=== PATIENT | female | born 1975 | race Two or more races ===

== ENCOUNTER 2025-11-25 09:24 | Outpatient (REF) | payer OTHER, SELFPAY ==
--- OUTSIDE RECORDS SUMMARY | 2025-11-25 09:56 | XMS_ITS | Clinical Summary ---
Author Organization [employer] Address [address] [facility] [address] [place] [address] Care Team Providers Care Heddler Name Role Phone Unavailable Primary Care Provider Unavailabl e Allergies No known active allergies Active Problems Problem Noted Date Diagnosed Date Post-menopausal 09/25/2025 Assessment & Plan (09/25/2025 4:40 PM EDT): Reports last period age 45. Experienced hot flashes for 1 yr before that, those have since resolved. Denies vaginal symptoms. Encounters Date Type Department Care Team Description 10/11/2025 Results Follow-Up [facility] [address] [place] [id number] Megan Ramires ANP Cologuard colon cancer screening 10/04/2025 Telephone [facility] [address] [place] [id number] Alyssia Khan NP Appointment Request 09/25/2025 2:45 PM EDT Office Visit [address] [address] Megan Ramires ANP Healthcare maintenance (Primary Dx); Screening for colon cancer; Routine screening for STI (sexually transmitted infection); Encounter for screening mammogram for malignant neoplasm of breast; Dietary counseling; Exercise counseling; Post-menopausal 09/25/2025 Travel 09/24/2025 Travel from Last 3 Months Immunizations Immunization Administration Dates Next Due MMR 02/05/2025 Family History Medical History Relation Name Comments Hypertension Mother Relation Name Status Comments Mother Social History Tobacco Use Types Packs/Day Years Used Date Smoking Tobacco: Never Passive Smoke Exposure: Never Smokeless Tobacco: Never Tobacco Cessation:Counseling Given: Not Answered Depression Answer Date Recorded Patient Health Questionnaire-9 Score 1 09/25/2025 Patient Health Questionnaire-9 Score 1 09/25/2025 Last PHQ-9: Questionnaire Data Not on file 1 Housing Stability Answer Date Recorded What is your housing situation today? I have festus seo 09/25/[address] you li ve. Do you have problems with any of the following? None of the above 09/25/2025 Food Insecurity Answer Date Recorded Within the past 12 months, y ou worried that your food would run out before you got money to buy more: Sometimes True 2024 Within the past 12 months,th e food you bought just didn't last and you didn't have enough money to get more: Never True 09/25/2025 Transportation Answer Date Recorded In the past 12 months, has l ack of transportation kept you from medical appts, meetings, work or from getting things needed for daily living? No 09/25/2025 Utilities Answer Date Recorded In the past 12 months, has t he electric, gas, oil or water company threatened to shut off services in your home? No 09/25/2025 Depression Answer Date Recorded Patient Health Questionnaire-2 Score 0 09/25/2025 Internet Access Answer Date Recorded Internet Access Q1 Yes 09/25/2025 Internet Access Q2 Not on file 09/25/2025 Comments Unknown Sex and Gender Information Value Date Recorded Sex Assigned at Female 07/17/2025 1:04 PM EDT Legal Sex Female 1:03 PM EDT Gender Identity Female 09/24/2025 10:20 AM EDT Sexual Orientation Straight 09/24/2025 10 :20 AM EDT Last Filed Vital Signs Vital Sign Reading Time Taken Comments Blood Pressure 130/86 09/25/2025 2:47 PM EDT Pulse 90 09/25/2025 2:47 PM EDT Temperature 36.8 C (98.2 F) 09/25/2025 2:47 PM EDT Respiratory Rate 16 09/25/2025 2:47 PM EDT Oxygen Saturation 99% 09/25/2025 2:47 PM EDT Inhaled Oxygen Concentration - - Weight 72.1 kg (159 lb) 09/25/2025 2:47 PM EDT Height 154.6 cm (5' 0.88 ) 09/25/2025 2:47 PM ED T Body Mass Index 30.16 09/25/2025 2:47 PM EDT Plan of Treatment Health Maintenance Due Date Last Done Comments CT Colonography 1975 Colonoscopy 1975 FIT 1975 HIV Screening 1975 Sigmoidoscopy 1975 Family Planning (PISQ) 1990 Hepatitis C Screening 1993 DTaP/Tdap/Td Vaccines (1 - Tdap) 1994 Hepatitis B Vaccines (1 of 3 - 19+ 3-dose series) 1994 Pap Smear 1996 Cervical Cancer Screening 2005 HPV/Cotest 2005 Mammogram 2015 Pneumococcal Vaccine: 50+ Years (1 of 1 - PCV) 2025 Zoster Vaccines (1 of 2) 2025 COVID-19 Vaccine (1 - 2024-2 6 season) 2025 Influenza Vaccine (#1) 2025 Alcohol/Substance Use Screening 09/25/2026 09/25/2025 Depression Screening 09/25/2026 09/25/2025, 09/25/2025 Disability Screening 09/25/2026 09/25/2025 SDOH Screening 09/25/2026 09/25/2025 Tobacco Screening 09/25/2026 09/25/2025 FOBT 10/05/2026 10/05/2025 Colorectal Cancer Screening 10/05/2028 FIT DNA/Cologuard 10/05/2028 10/05/2025 RSV Patients and Patients Aged 60 years or older (1 - 1-dose 75+ series) 2050 HIB Vaccines Aged Out No longer eligi ble based on patient's age to complete this topic HPV Vaccines Aged Out No longer eligi ble based on patient's age to complete this topic Hepatitis A Vaccines Aged Out No long er eligible based on patient's age to complete this topic IPV Vaccines Aged Out No longer eligi ble based on patient's age to complete this topic Meningococcal B Vaccine Aged Out No l onger eligible based on patient's age to complete this topic Meningococcal Vaccine Aged Out No abdullahi evaristo eligible based on patient's age to complete this topic RSV under 20 months Aged Out No longe r eligible based on patient's age to complete this topic Rotavirus Vaccines Aged Out No longer eligible based on patient's age to complete this topic Procedures Procedure Name Priority Date/Time Associated Diagnosis Comments LAB COLOGUARD COLON CANCER SCREEN Routine 10/05/2025 9:30 AM EST Screening for colon cancer from Last 3 Months Results * Cologuard?? colon cancer screening (10/05/2025 9:30 AM EST) Cologuard Result Negative Negative 10/11/20 4:08 AM EST [employer] (CLIA #:[id number]) Comment: The Cologuard (TM) test was performed on this specimen. NEGATIVE TEST RESULT. A negative Cologuard result indicates a low likelihood that a colorectal cancer (CRC) or advanced adenoma (adenomatous polyps with more advanced pre-malignant features) is present. The chance that a person with a negative Cologuard test has a colorectal cancer is less than 1 in 1500 (negative predictive value >99.9%) or has an advanced adenoma is less than 5.3% (negative predictive value 94.7%). These data are based on a prospective cross-sectional study of 10,000 individuals at average risk for colorectal cancer who were screened with both Cologuard and colonoscopy. (Jaime Langford. et al, N Engl J Med 2014;370(14):1286- 1297) The normal value (reference range) for this assay is negative. COLOGUARD RE-SCREENING RECOMMENDATION: Periodic colorectal cancer screening is an important part of preventive healthcare for asymptomatic individuals at average risk for colorectal cancer. Following a negative Cologuard result, the [place] [employer] and U.S. Multi-Society Task Force screening guidelines recommend a Cologuard re-screening interval of 3 years. References: [place] [employer] Guideline for Colorectal Cancer Screening: https://www.cancer.org/cancer/jfrsr-vjuinc-fnkfaf/jyfapmqot-ontlosqku-mimlkhh/ac s-rec ommendations.html.; Remberto THORNE, Gerardo KELLER, Kg BRUNER, Colorectal Cancer Screening: Recommendations for Physicians and Patients from the U.S. Multi-Society Task Force on Colorectal Cancer Screening , Am J Gastroenterology 2017; 112:1454-7499. TEST DESCRIPTION: Composite algorithmic analysis of stool DNA-biomarkers with hemoglobin immunoassay. Quantitative values of individual biomarkers are not reportable and are not associated with individual biomarker result reference ranges. Cologuard is intended for colorectal cancer screening of adults of either sex, 45 years or older, who are at average-risk for colorectal cancer (CRC). Cologuard has been approved for use by the U.S. FDA. The performance of Cologuard was established in a cross sectional study of average-risk adults aged 50-84. Cologuard performance in patients ages 45 to 49 years was estimated by sub-group analysis of near-age groups. Colonoscopies performed for a positive result may find as the most clinically significant lesion: colorectal cancer [4.0%], advanced adenoma (including sessile serrated polyps greater than or equal to 1cm diameter) [20%] or non- advanced adenoma [31%]; or no colorectal neoplasia [45%]. These estimates are derived from a prospective cross-sectional screening study of 10,000 individuals at average risk for colorectal cancer who were screened with both Cologuard and colonoscopy. (Jaime Langford. et al, N Engl J Med 2014;370(14):8460-5530.) Cologuard may produce a false negative or false positive result (no colorectal cancer or precancerous polyp present at colonoscopy follow up). A negative Cologuard test result does not guarantee the absence of CRC or advanced adenoma (pre-cancer). The current Cologuard screening interval is every 3 years. ([place] [employer] and U.S. Multi-Society Task Force). Cologuard performance data in a 10,000 patient pivotal study using colonoscopy as the reference method can be accessed at the following location: www.Variable/results. Additional description of the Cologuard test process, warnings and precautions can be found at www.Tamionrd.com. Stool specimen (specimen) 10/05/2025 9:30 AM EST 10/07/2025 12:12 PM EST [facility] LAB MOLECULAR DIAGNOSTICS ORDERA BLES Final Result [employer] (CLIA #:[id number]) [place] [address], from Last 3 Months Insurance [place] [id number] [facility] , [address] [address]
--- OUTSIDE RECORDS SUMMARY | 2025-11-25 09:56 | XMS_ITS | Encounter Summary ---
Author Organization [employer] Address [address] [facility] 7 [place] [address] Care Team Providers Care Clinical Lab Assistant Name Role Phone Megan Ramires SHOBHA Primary Care Provider [phone] Reason for Visit * Reason Onset Date Comments Appointment Request 10/04/2025 Encounter Details Date Type Department Care Team ([facility] st Contact Info) Description 10/04/2025 Telephone [facility] [address] [place], [place] [id number] Alyssia Khan NP [address] [place] [address] Appointment Request Social History Tobacco Use Types Packs/Day Years Used Date Smoking Tobacco: Never Passive Smoke Exposure: Never Smokeless Tobacco: Never Depression Answer Date Recorded Patient Health Questionnaire-9 Score 1 09/25/2025 Patient Health Questionnaire-9 Score 1 09/25/2025 Last PHQ-9: Questionnaire Data Not on file 1 Housing Stability Answer Date Recorded What is your housing situation today? I have fetsus seo 09/25/[address] you [...] Orientation Straight 09/24/2025 10 :20 AM EDT documented as of this encounter Miscellaneous Notes * Telephone Encounter - Osmel Cheema - 10/04/2025 3:40 PM EST Tc from pt requesting to r/s originally scheduled for Alyssia Khan and will like a later day. Contact pt at [phone] (urdu speaker) documented in this encounter Plan of Treatment Not on file documented as of this encounter Visit Diagnoses Not on filedocumented in this encounter Additional Health Concerns Assessment Noted Time PHQ-9 Depression Total Score: 1 09/25/20 3:19 PM EDT documented as of this encounter Care Teams Clinical Lab Assistant Relationship Specialty Start Date End Date Megan Ramires ANP [address] [place] [id number] PCP - General Family Medicine 10/04/25 10/10/25 documented as of this encounter
[2025-11-25 11:14] LABS: MANUAL DIFF FLAG NO
[2025-11-25 11:16] LABS: Hematocrit 37.7 % (37.0-47.0); Hemoglobin 12.3 g/dl (12.0-16.0); Imm Gran Abs Auto 0.02 X10*3/uL (0.00-0.03); Imm Gran Pct Auto 0.3 % (0.0-0.4); Lymphocytes Absolute Auto 2.6 X10*3/uL (1.2-4.9); Mean Corpuscular HGB Conc 32.6 g/dl (31.0-35.0); Mean Corpuscular Hemoglobin 28.6 pg (27.0-33.0); Mean Corpuscular Volume 87.7 fL (80.0-98.0); NRBC Abs Auto 0.000 X10*3/uL (0.0-0.012); NRBC Pct Auto 0.0 /100WBC (0.0-0.2); Platelet Count 257 X10*3/uL (160-400); Red Blood Count 4.30 X10*6/uL (4.20-5.50); White Blood Count 5.8 X10*3/uL (4.8-10.8)
[2025-11-25 11:41] LABS: Alanine Aminotransferase 37 U/L (0-31); Albumin Level 4.9 g/dL (3.5-5.0); Alkaline Phosphatase 87 U/L (39-117); Anion Gap 14 (12-20); Aspartate Amino Transferase 33 U/L (5-31); Blood Urea Nitrogen 15 mg/dL (9-16); Calcium 10.2 mg/dL (8.4-10.2); Carbon Dioxide 28 mmol/L (22-29); Chloride 108 mmol/L (96-108); Cholesterol 327 mg/dL (<200); Estimated Glomerular Filt Rate 56; HDL Cholesterol 51 mg/dL (>40); Potassium 4.5 mmol/L (3.3-5.1); Sodium 145 mmol/L (135-145); Total Protein 8.2 g/dL (6.5-8.0); Triglycerides 345 mg/dL (<150)
[2025-11-25 11:51] LABS: HBS Num1 8.63 mIU/mL (0-7.99); HBc Num1 0.28 S/CO (0.00-0.79); HBsAGNum1 0.41 S/CO (0.00-0.99); HIV Num 1 0.13 S/CO (0.00-0.99); Hepatitis B Surface Antigen Negative (Negative); ~HepC Num1 0.19 S/CO (0.00-0.79); ~Hepatitis C Antibody Nonreactive (Nonreactive)
[2025-11-25 12:46] LABS: Syphilis Screen Nonreactive (Nonreactive)
[2025-11-25 13:36] LABS: HBS Num2 16.40 mIU/mL (0-7.99); HBS Num3 16.00 mIU/mL (0-7.99); ~Hepatitis B Surface Antibody REACTIVE (Nonreactive)
== END 2025-11-25 09:25 | disposition home or self-care (01) ==
LOC: HO.HHCL 09:24
PROVIDERS: Visit Provider Nurse Practitioner Primary Care
DX: Z00.00 Encounter for general adult medical examination without abnormal findings (principal); Z11.4 Encounter for screening for human immunodeficiency virus [HIV]; Z20.2 Contact with and (suspected) exposure to infections with a predominantly sexual mode of transmission; Z13.1 Encounter for screening for diabetes mellitus; Z13.6 Encounter for screening for cardiovascular disorders
CPT/HCPCS: 36415; 80053; 80061; 83036; 85025; 86704; 86706; 86780; 86803; 87340; 87389